=== PATIENT | female | born 1950 | race Caucasian/White ===

== ENCOUNTER 2021-03-07 19:45 | Emergency (ER) | payer MEDICARE ==
[2021-03-07 20:08] VITALS: PULSE 75; RESP 18; TEMP 98.1
[2021-03-07] MEDS ORDERED: HYDROmorphone 1 MG/ML 1 ML SYRINGE IM STA (20:10)
--- NOTE | 2021-03-07 20:13 | ED ---
General Adult HPI - General Chief complaint: Fall Stated complaint: Fall, rib pain Time Seen by Provider: 03/07/21 19:52 Source: patient, EMS, RN notes reviewed Mode of arrival: EMS Limitations: physical limitation - History of Present Illness Initial comments: Patient is a pleasant 70-year-old female presenting to the emergency Department with left-sided rib pain. Onset of symptoms was following a fall this morning. Patient denies dyspnea. Discomfort does increase with deep breaths and movement. Patient has history of chronic neck and lower back problems and requests x-ray these areas as well as. No head injury or loss of consciousness. No new weakness. Patient states she tripped and landed on the couch. - Related Data Allergies Allergy/AdvReac Type Severity Reaction Status Date / Time bupropion [From Wellbutrin] Allergy Rash/Hives Verified 03/07/21 20:09 Penicillins Allergy Anaphylaxis Verified 03/07/21 20:09 Review of Systems ROS Statement: Those systems with pertinent positive or pertinent negative responses have been documented in the HPI. ROS Other: All systems not noted in ROS Statement are negative. Constitutional: Denies: fever Eyes: Denies: eye pain ENT: Denies: ear pain Respiratory: Denies: cough, dyspnea Cardiovascular: Reports: as per HPI. Denies: palpitations Endocrine: Denies: fatigue Gastrointestinal: Denies: abdominal pain Genitourinary: Denies: dysuria Musculoskeletal: Reports: as per HPI Skin: Denies: rash Neurological: Denies: weakness Past Medical History Past Medical History: Myocardial Infarction ([place]) Additional Past Medical History / Comment(s): 1 stent placed in 2009, History of Any Multi-Drug Resistant Organisms: None Reported Past Surgical History: No Surgical Hx Reported Past Psychological History: Anxiety Smoking Status: Current every day smoker, Light tobacco smoker Past Alcohol Use History: None Reported Past Drug Use History: None Reported General Exam Limitations: physical limitation General appearance: alert, in no apparent distress Head exam: Present: normocephalic Eye exam: Present: normal appearance ENT exam: Present: normal oropharynx Neck exam: Present: normal inspection. Absent: tenderness Respiratory exam: Present: normal lung sounds bilaterally, other (Tenderness left lateral ribs below the axilla.) Cardiovascular Exam: Present: regular rate, normal rhythm GI/Abdominal exam: Present: soft. Absent: distended, tenderness, guarding, rebound, rigid Extremities exam: Present: normal inspection, full ROM. Absent: tenderness Back exam: Present: normal inspection. Absent: tenderness, CVA tenderness (L), vertebral tenderness Neurological exam: Present: alert. Absent: motor sensory deficit Expanded Motor strength exam: RLE: 5, LLE: 5 Psychiatric exam: Present: normal affect, normal mood Skin exam: Present: normal color Course Vital Signs 03/07/21 19:48 Temperature 98.1 F Pulse Rate 75 Respiratory 18 Rate Blood Pressure 146/76 O2 Sat by Pulse 98 Oximetry Medical Decision Making - Medical Decision Making Patient reevaluated and resting comfortably in home. Bed. Case discussed with Dr. Sanchez who is comfortable with either admission or discharge and patient pain. This was discussed with patient. Patient denies dyspnea and does request discharge home. Patient is nervous regarding recent viruses in the community. Patient is updated she will need to return if short of breath or worsening symptoms. Respiratory called for incentive spirometry for patient and take home - Radiology Data Radiology results: image reviewed (Chest x-ray shows displaced left lateral rib fractures 5 through 7 and probably 8. Cervical and lumbar spine x-rays show no acute process) Disposition Clinical Impression: Fall, Rib fractures Disposition: HOME SELF-CARE Condition: Stable Instructions (If sedation given, give patient instructions): Fall Prevention (ED), Rib Fracture (ED) Additional Instructions: Please follow-up with primary care physician in the next day or 2 for recheck. Return for any difficulty breathing, increased pain, fevers, worsening symptoms or other concerns. Is patient prescribed a controlled substance at d/c from ED?: No Referrals: Christopher Pleitez MD [Primary Care Provider] - 1-2 days Time of Disposition: 21:16
--- NOTE | 2021-03-07 21:00 | XR ---
EXAMINATION TYPE: XR ribs LT w pa chest xray DATE OF EXAM: 03/07/2021 COMPARISON: 11/16/2020 HISTORY: Trauma. Left-sided rib pain TECHNIQUE: 5 views FINDINGS: Heart size is normal. There is no heart failure. Lungs are clear of consolidation. There is deformity of multiple left lateral ribs. There are fractures of the left fifth and sixth and seventh and probably eighth ribs. There is pleural thickening on the left lateral chest wall. No pneumothora x. IMPRESSION: Multiple acute mildly displaced left-sided rib fractures with depression of the lateral r ibs. No cardiopulmonary disease. No pneumothorax.
--- NOTE | 2021-03-07 21:02 | XR ---
EXAMINATION TYPE: XR lumbar spine 2 or 3V DATE OF EXAM: 03/07/2021 COMPARISON: NONE HISTORY: Pain TECHNIQUE: 3 views FINDINGS: The lumbar vertebra have normal alignment. There is degenerative disc space narrowing at L4 -5 and L5-S1. There is some spurring of the endplates. Abdominal aorta is atheromatous. Sacroiliac checo ints are intact. IMPRESSION: Spondylotic changes. No fracture.
--- NOTE | 2021-03-07 21:09 | XR ---
EXAMINATION TYPE: XR cervical spine comp DATE OF EXAM: 03/07/2021 COMPARISON: NONE HISTORY: Pain TECHNIQUE: 6 views FINDINGS: The cervical vertebra have normal alignment. Posterior elements are intact. There is some o steopenia. Disc spaces are fairly normal. There is no cervical rib. Atlantoaxial facet joint is intac t. IMPRESSION: Negative cervical spine exam. No fracture.
[2021-03-07] MEDS ORDERED: ACET/COD 300 MG/30 MG STARTER PACK 6 TAB BTL PO STA (21:16)
[2021-03-07 22:50] VITALS: BP 145/70
== END 2021-03-07 22:09 | disposition home or self-care (01) ==
LOC: EC 19:45
DX: S22.32XA Fracture of one rib, left side, initial encounter for closed fracture (principal); I25.2 Old myocardial infarction; F41.9 Anxiety disorder, unspecified; F17.200 Nicotine dependence, unspecified, uncomplicated; Z88.0 Allergy status to penicillin; W01.0XXA Fall on same level from slipping, tripping and stumbling without subsequent striking against object, initial encounter
CPT/HCPCS: 99283; 96372; 71101; 72050; 72100; J1170

== ENCOUNTER → 2021-04-22 | Outpatient (CLI) | payer MEDICARE ==
--- NOTE | 2021-04-22 14:42 | US ---
EXAMINATION TYPE: US carotid duplex BILAT DATE OF EXAM: 04/22/2021 COMPARISON: NONE CLINICAL HISTORY: G45.9 TIA. TIA. Fall EXAM MEASUREMENTS: RIGHT: Peak Systolic Velocity (PSV) cm/sec ----- Right CCA: 53.1 ----- Right ICA: 194.3 ----- Right ECA: 215.1 ICA/CCA ratio: 3.7 RIGHT: End Diastole cm/sec ----- Right CCA: 18.9 ----- Right ICA: 42.6 ----- Right ECA: 31.6 LEFT: Peak Systolic Velocity (PSV) cm/sec ----- Left CCA: N/A ----- Left ICA: N/A ----- Left ECA: 56.3 ICA/CCA ratio: N/A LEFT: End Diastole cm/sec ----- Left CCA: N/A ----- Left ICA: N/A ----- Left ECA: 15.6 VERTEBRALS (direction of flow): Right Vertebral: antegrade, diminished Left Vertebral: Antegrade Rhythm: Normal Moderate plaque right bifurcation. Severe plaque left bifurcation. Increased velocities right ICA and ECA. Unable to detect flow within left CCA, left bulb, or left ICA. possible flow reversal left ICA IMPRESSION: 1. Moderate to severe right carotid bulb plaque formation with the moderate 50-69% stenosis. 2. Severe calcified plaque formation in the left carotid bulb with no detectable flow in the left com mon or internal carotid arteries possibly indicating complete obstruction. CTA of the neck might be u seful for further evaluation. Criteria for Assigning % of Stenosis / Diameter reduction (Estimation based on the indirect measurements of the internal carotid artery velocities (ICA PSV). 1. Normal (no stenosis)=ICA PSV < 125 cm/s: ratio < 2.0: ICA EDV<40 cm/s. 2. Less than 50% stenosis=ICA PSV < 125 cm/s: ratio < 2.0: ICA EDV<40 cm/s. 3. 50 to 69% stenosis=ICA PSV of 125 to 230 cm/s: ration 2.0 ? 4.0: ICA EDV 40-100 cm/s. 4. Greater than 70% stenosis to near occlusion= ICA PSV > 230 cm/s: ratio > 4.0: ICA EDV > 100 cm/s. 5. Near occlusion= ICA PSV velocities may be low or undetectable: variable ratio and ICA EDV. 6. Total occlusion=unable to detect flow.
--- NOTE | 2021-04-23 14:39 | ECHOF ---
Referral Reason:G45.9 TIA MEASUREMENTS -------- HEIGHT: 172.7 cm WEIGHT: 88.0 kg BP: IVSd: 1.5 cm (0.6 - 1.1) LVIDd: 3.7 cm (3.9 - 5.3) LVPWd: 1.3 cm (0.6 - 1.1) IVSs: 1.7 cm LVIDs: 1.9 cm LVPWs: 1.5 cm LAESV Index (A-L): 28.77 ml/m Ao Diam: 2.8 cm (2.0 - 3.7) AV Cusp: 2.0 cm (1.5 - 2.6) MV E Kj: 0.47 m/s MV DecT: 244 ms MV A Kj: 0.77 m/s MV E/A Ratio: 0.61 RAP: 5.00 mmHg RVSP: 11.31 mmHg FINDINGS -------- Sinus rhythm. This was a technically adequate study. The left ventricular size is normal. There is moderate concentric left ventricular hypertrophy. O verall left ventricular systolic function is normal with, an EF between 55 - 60 %. The diastolic fi lling pattern is normal for the age of the patient 7.75. The right ventricle is normal in size. The left atrial size is normal. The right atrial size is normal. Interatrial and interventricular septum intact. There is mild aortic valve sclerosis. There is no evidence of aortic regurgitation. There is no e vidence of aortic stenosis. Mild mitral annular calcification present. There is trace to mild mitral regurgitation. Trace tricuspid regurgitation present. There is no evidence of pulmonary hypertension. The right ventricular systolic pressure, as measured by Doppler, is 11.31mmHg. The pulmonic valve was not well visualized. There is no pulmonic regurgitation present. The aortic root size is normal. IVC Not well visulized. There is no pericardial effusion. CONCLUSIONS -------- 1. There is moderate concentric left ventricular hypertrophy. 2. Overall left ventricular systolic function is normal with, an EF between 55 - 60 %. 3. The left atrial size is normal. 4. There is mild aortic valve sclerosis. 5. There is trace to mild mitral regurgitation. 6. Trace tricuspid regurgitation present. 7. There is no pericardial effusion. FOOD ORDER DELIVERY RUNNER: Shannan Cardona [facility]
== END | disposition home or self-care (01) ==
LOC: RADUSWWP 14:02
PROVIDERS: ATTEND Family Medicine
DX: I08.3 Combined rheumatic disorders of mitral, aortic and tricuspid valves (principal); I65.23 Occlusion and stenosis of bilateral carotid arteries
CPT/HCPCS: 93306; 93880

== ENCOUNTER 2021-05-17 16:19 | Inpatient (IN) | payer MEDICARE ==
[2021-05-17 17:10] VITALS: TEMP 98.2
[2021-05-17 17:42] LABS: Basophils # (A) 0.1 k/uL (0-0.2); Basophils % (A) 1 %; Eosinophils # (A) 0.3 k/uL (0-0.7); Eosinophils % (A) 3 %; HCT 40.3 % (34.0-46.0); HGB 14.1 gm/dL (11.4-16.0); Lymphocytes # (A) 1.4 k/uL (1.0-4.8); Lymphocytes % (A) 14 %; Mean Platelet Volume 7.8; Monocytes # (A) 0.5 k/uL (0-1.0); Monocytes % (A) 5 %; Neutrophils # (A) 7.9 k/uL (1.3-7.7); Neutrophils % (A) 77 %; Platelet Count 204 k/uL (150-450); RBC 4.03 m/uL (3.80-5.40); WBC 10.2 k/uL (3.8-10.6)
[2021-05-17 17:50] LABS: Prothrombin Time 10.7 sec (9.0-12.0)
[2021-05-17 17:56] LABS: Albumin 3.8 g/dL (3.5-5.0); Calcium 8.9 mg/dL (8.4-10.2); Potassium 3.7 mmol/L (3.5-5.1); Total Bilirubin 0.7 mg/dL (0.2-1.3); Total Protein 6.7 g/dL (6.3-8.2)
--- NOTE | 2021-05-17 19:42 | ED ---
Dizziness HPI - General Chief Complaint: Dizziness Stated Complaint: Fall-R shoulder pain,Dizziness Time Seen by Provider: 05/17/21 19:24 Source: patient, RN notes reviewed Mode of arrival: wheelchair Limitations: no limitations - History of Present Illness Initial Comments: 70-year-old female to the emergency department for complaints of dizziness and fall with some injury to her shoulders associated and actually impact with anything. She has similar episode in February this past year which she fell and broke 4 ribs. She states she's been having intermittent episodes of dizziness she states yesterday she had numbness and tingling to her left arm which is since resolved. She's been nauseated a lot with some vomiting. She also has had a slight cough or past 3 months. 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 She is currently under outpatient workup. She denies any overt fevers chills or sweats currently no overt dizziness no weakness addition she states she had some partial blindness of left eye ye sterday which has since resolved. MD Complaint: dizziness, lightheadedness, other - Related Data Allergies Allergy/AdvReac Type Severity Reaction Status Date / Time bupropion [From Wellbutrin] Allergy Rash/Hives Verified 05/17/21 17:10 Penicillins Allergy Anaphylaxis Verified 05/17/21 17:10 Review of Systems ROS Statement: Those systems with pertinent positive or pertinent negative responses have been documented in the HPI. ROS Other: All systems not noted in ROS Statement are negative. Past Medical History Past Medical History: COPD, Hypertension, Myocardial Infarction ([place]) Additional Past Medical History / Comment(s): 1 stent placed in 2009, emphysema. History of Any Multi-Drug Resistant Organisms: None Reported Past Surgical History: Heart Catheterization With Stent Past Psychological History: Anxiety Smoking Status: Current every day smoker Past Alcohol Use History: None Reported Past Drug Use History: None Reported General Exam - General Exam Comments Initial Comments: This is a well-developed well-nourished awake alert oriented 3 female Limitations: no limitations General appearance: alert, in no apparent distress Head exam: Present: atraumatic, normocephalic, normal inspection Eye exam: Present: normal appearance, PERRL, EOMI. Absent: scleral icterus, conjunctival injection, periorbital swelling ENT exam: Present: mucous membranes dry Neck exam: Present: normal inspection, full ROM, other (No JVD no stridor no overt bruits). Absent: tenderness, meningismus, lymphadenopathy Respiratory exam: Present: normal lung sounds bilaterally. Absent: respiratory distress, wheezes, rales, rhonchi, stridor Cardiovascular Exam: Present: regular rate, normal rhythm, normal heart sounds. Absent: systolic murmur, diastolic murmur, rubs, gallop, clicks GI/Abdominal exam: Present: soft, normal bowel sounds. Absent: distended, tenderness, guarding, rebound, rigid, bruit, pulsatile mass Extremities exam: Present: normal inspection, full ROM, normal capillary refill. Absent: tenderness, pedal edema, joint swelling, calf tenderness Back exam: Present: normal inspection Neurological exam: Present: alert, oriented X3, CN II-XII intact Psychiatric exam: Present: normal affect, normal mood Skin exam: Present: warm, dry, intact, normal color. Absent: rash Course Vital Signs 05/17/21 17:04 Temperature 98.2 F Pulse Rate 123 H Respiratory 20 Rate Blood Pressure 86/62 O2 Sat by Pulse 94 L Oximetry EKG Findings - EKG Results: EKG: interpreted by LYNDA, sinus rhythm (Sinus rhythm 118 PA interval 179 QRS duration 89 QT since QTC 3:30/[address] configuration artifact present) Medical Decision Making - Medical Decision Making I did have one discussed with patient and her friend regarding the findings the patient is currently asymptomatic with no evidence of any symptoms no focal defi cits. The presentation hour does sound suspicious for TIA. Patient will be admitted CT will be ordered neurological consultation. I did discuss this with Dr. Pleitez. - Lab Data Result diagrams: 05/17/21 17:15 05/17/21 17:15 Lab Results 05/17/21 05/17/21 05/17/21 Range/Units 17:15 17:15 17:15 WBC 10.2 (3.8-10.6) k/uL RBC 4.03 (3.80-5.40) m/uL Hgb 14.1 (11.4-16.0) gm/dL Hct 40.3 (34.0-46.0) % MCV 100.0 (80.0-100.0) fL MCH 35.0 (25.0-35.0) pg MCHC 35.0 (31.0-37.0) g/dL RDW 14.0 (11.5-15.5) % Plt Count 204 (150-450) k/uL MPV 7.8 Neutrophils % 77 % Lymphocytes % 14 % Monocytes % 5 % Eosinophils % 3 % Basophils % 1 % Neutrophils # 7.9 H (1.3-7.7) k/uL Lymphocytes # 1.4 (1.0-4.8) k/uL Monocytes # 0.5 (0-1.0) k/uL Eosinophils # 0.3 (0-0.7) k/uL Basophils # 0.1 (0-0.2) k/uL PT 10.7 (9.0-12.0) sec INR 1.0 (<1.2) Sodium 131 L (137-145) mmol/L Potassium 3.7 (3.5-5.1) mmol/L Chloride 99 (98-107) mmol/L Carbon Dioxide 22 (22-30) mmol/L Anion Gap 10 mmol/L BUN 17 (7-17) mg/dL Creatinine 1.06 H (0.52-1.04) mg/dL Est GFR (CKD-EPI)AfAm 63 (>60 ml/min/1.73 sqM) Est GFR (CKD-EPI)NonAf 54 (>60 ml/min/1.73 sqM) Glucose 119 H (74-99) mg/dL Calcium 8.9 (8.4-10.2) mg/dL Total Bilirubin 0.7 (0.2-1.3) mg/dL AST 71 H (14-36) U/L ALT 51 H (4-34) U/L Alkaline Phosphatase 115 (38-126) U/L Troponin I (0.000-0.034) ng/mL Total Protein 6.7 (6.3-8.2) g/dL Albumin 3.8 (3.5-5.0) g/dL 05/17/21 Range/Units 17:15 WBC (3.8-10.6) k/uL RBC (3.80-5.40) m/uL Hgb (11.4-16.0) gm/dL Hct (34.0-46.0) % MCV (80.0-100.0) fL MCH (25.0-35.0) pg MCHC (31.0-37.0) g/dL RDW (11.5-15.5) % Plt Count (150-450) k/uL MPV Neutrophils % % Lymphocytes % % Monocytes % % Eosinophils % % Basophils % % Neutrophils # (1.3-7.7) k/uL Lymphocytes # (1.0-4.8) k/uL Monocytes # (0-1.0) k/uL Eosinophils # (0-0.7) k/uL Basophils # (0-0.2) k/uL PT (9.0-12.0) sec INR (<1.2) Sodium (137-145) mmol/L Potassium (3.5-5.1) mmol/L Chloride (98-107) mmol/L Carbon Dioxide (22-30) mmol/L Anion Gap mmol/L BUN (7-17) mg/dL Creatinine (0.52-1.04) mg/dL Est GFR (CKD-EPI)AfAm (>60 ml/min/1.73 sqM) Est GFR (CKD-EPI)NonAf (>60 ml/min/1.73 sqM) Glucose (74-99) mg/dL Calcium (8.4-10.2) mg/dL Total Bilirubin (0.2-1.3) mg/dL AST (14-36) U/L ALT (4-34) U/L Alkaline Phosphatase (38-126) U/L Troponin I 0.013 (0.000-0.034) ng/mL Total Protein (6.3-8.2) g/dL Albumin (3.5-5.0) g/dL Disposition Clinical Impression: TIA (transient ischemic attack), Dizziness Disposition: ADMITTED IP TO THIS HOSP Condition: Stable Referrals: Christopher Pleitez MD [Primary Care Provider] - 1-2 days
[2021-05-17] MEDS ORDERED: ASPIRIN 325 MG TAB PO STA (20:11)
[2021-05-17] MEDS ORDERED: ACETAMINOPHEN TAB 325 MG TAB PO PRN (20:11)
[2021-05-17] MEDS ORDERED: SODIUM CHLORIDE 0.9% 1,000 ML IV SCH (20:15)
[2021-05-17] MEDS ORDERED: HYDROcodone/APAP 5-325MG 1 EACH TAB PO PRN (20:40)
[2021-05-17] MEDS ORDERED: ALBUTEROL NEBULIZED 2.5 MG/3 ML INHALATION PRN (20:40)
[2021-05-17] MEDS ORDERED: traMADol 50 MG TAB PO PRN (20:40)
[2021-05-17 20:52] LABS: Appearance,Urine Cloudy (Clear); Bilirubin,Urine Negative (Negative); Blood,Urine Negative (Negative); Color,Urine Yellow; Glucose,Urine (UA) Negative (Negative); Hyaline Casts,Urine 29 /lpf (0-2); Ketones,Urine Negative (Negative); Leukocyte Esterase,Urine Large (Negative); Mucus,Urine Occasional /hpf; Nitrite,Urine Negative (Negative); Protein,Urine Trace (Negative); RBC,Urine 2 /hpf (0-5); Specific Gravity,Urine 1.016 (1.001-1.035); Squamous Epithelial Cell,Urine 5 /hpf (0-4); Urobilinogen,Urine <2.0 mg/dL (<2.0); WBC,Urine 29 /hpf (0-5)
[2021-05-17] MEDS ORDERED: PRAVASTATIN SODIUM 40 MG TAB PO SCH (21:00)
[2021-05-17] MEDS ORDERED: CITALOPRAM HYDROBROMIDE 20 MG TAB PO SCH (21:00)
--- NOTE | 2021-05-17 21:09 | XR ---
EXAMINATION TYPE: XR chest 1V DATE OF EXAM: 05/17/2021 COMPARISON: 03/07/2021 HISTORY: Altered mental status TECHNIQUE: Single view FINDINGS: There is some blunting left costophrenic angle. There is minimal pleural thickening left la teral chest wall. There are multiple left lateral rib fractures. No heart failure seen. Heart size is normal. IMPRESSION: Multiple left-sided ununited rib fractures. Mild pleural reaction at the left lateral nika g base. No heart failure.
--- NOTE | 2021-05-17 21:33 | CT ---
EXAMINATION TYPE: CT brain wo con for TPA DATE OF EXAM: 05/17/2021 COMPARISON: None HISTORY: Neuro deficits, vision disturbances, dizziness. Stroke suspcted CT DLP: 1176.8 mGycm Automated exposure control for dose reduction was used. Images obtained of the brain without contrast. There is mild cerebral cortical atrophy. There is no mass effect or midline shift. There is no sign o f intracranial hemorrhage. There is rounded high attenuation mass measuring 1.6 cm at the right side of the [place] there is densely enhancing on the angiogram and consistent with a giant aneur ysm probably arising from the right posterior communicating artery. There is no evidence of focal cortical infarct. There is some mass effect upon the optic chiasm. 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 Mild cerebral atrophy.
--- NOTE | 2021-05-17 21:59 | CT ---
EXAMINATION TYPE: CT angio head neck DATE OF EXAM: 05/17/2021 COMPARISON: None HISTORY: Neuro deficits, vision disturbances, dizziness. Stroke suspcted CT DLP: 647.6 mGycm Automated exposure control for dose reduction was used. CONTRAST: Performed with IV Contrast, patient injected with 65 mL of Isovue 370. Images obtained from the aortic arch to the vertex of the brain with IV contrast. There are Three-D p ostprocessed images. There is normal branching pattern of the great vessels on the aortic arch. There is arterial flow in both subclavian arteries. There is apparent complete occlusion of the left common carotid artery. The re is extensive calcification at the left carotid artery bifurcation. There is arterial flow in the r ight common carotid artery and the right internal and external carotid artery without evidence of hem odynamic stenosis. There is arterial flow in both vertebral arteries. There is arterial flow in the distal right internal carotid artery at the [place]. There is a uniformly enhancing 1.7 cm rounded mass at the right side of the [place] consistent with a giant aneurysm. Enhancement is equal to the adjacent vessels. There is arterial flow in both middle cerebral arteries. Left middle cerebral artery appears to be filling through the anterior communicati ng artery. No flow seen in the left internal carotid artery at the [place]. There is arteria l flow in both posterior cerebral arteries and both anterior cerebral arteries. No evidence of hemody namic stenosis. The large aneurysm shows mass effect upon the optic chiasm and the right side of the sella turc[place]. There is normal enhancement of the venous sinuses. No contrast extravasation. There is normal contras t opacification of the vertebrobasilar artery system. IMPRESSION: There is a joint aneurysm of the right side of the [place] that is probably arising from the right posterior communicating artery. There is mass effect upon the optic chiasm and pituitary gland . There is thrombosis of the entire left carotid artery. There is filling of the left middle cerebral artery through the anterior communicating artery. It is filling of the left anterior cerebral artery through the anterior communicating artery.
[2021-05-17] MEDS: CYCLOBENZAPRINE 10 MG TAB PO SCH (22:34)
[2021-05-17] MEDS: METOPROLOL TARTRATE 50 MG TAB PO SCH (22:35)
[2021-05-17] MEDS: ALPRAZolam 0.5 MG TAB PO SCH (22:36)
[2021-05-17] MEDS: FAMOTIDINE 20 MG/2 ML VIAL IV SCH (22:36)
[2021-05-18] MEDS ORDERED: SYMBICORT 160-4.5 MCG INHALER INHALATION SCH (08:00)
--- NOTE | 2021-05-18 08:19 | P.HPIM ---
History of Present Illness H&P Date: 05/18/21 Chief Complaint: Dizziness This is a history of physical 70-year-old white female with known history of hypertension and hyperlipidemia who states yesterday she had significant problems related to dizziness. She then had left-sided visual loss and left- sided numbness and weakness which lasted about an hour. She did not complain of any gait dysfunction but she complained of dizziness and balance issues. This resolved but she was very worried about vascular issues and came in for workup. Computed tomography scan of the head did not show significant issue. However gi nadia her symptomatology and her underlying comorbidities, she is appropriately evaluated for TIA/CVA workup. Neurology is not consulted. She seems a symptomatically at this time and has rested well this morning. No taste issues. Numbness and tingling are stated in the extremities. Review of Systems Constitutional: Denies chills, Denies fever Ears, nose, mouth and throat: Denies headache, Denies sore throat Cardiovascular: Denies chest pain, Denies shortness of breath Respiratory: Denies cough Gastrointestinal: Denies abdominal pain, Denies diarrhea, Denies nausea, Denies vomiting Genitourinary: Denies dysuria, Denies hematuria Neurological: Reports loss of vision, Reports vertigo, Denies aphasia Past Medical History Past Medical History: COPD, Hypertension, Myocardial Infarction (MA) Additional Past Medical History / Comment(s): 1 stent placed in 2009, emphysema. History of Any Multi-Drug Resistant Organisms: None Reported Past Surgical History: Heart Catheterization With Stent Past Psychological History: Anxiety Smoking Status: Current every day smoker Past Alcohol Use History: None Reported Past Drug Use History: None Reported Medications and Allergies Home Medications Medication Instructions Recorded Confirmed Type ALPRAZolam [Xanax] 0.5 mg PO TID 05/17/21 05/17/21 History Albuterol Sulfate [Albuterol 2 puff INHALATION RT-Q6H PRN 05/17/21 05/17/21 History Sulfate Hfa] Aspirin [[place] Aspirin EC] 81 mg PO HS 05/17/21 05/17/21 History Cholecalciferol [Vitamin D3 (125 125 mcg PO DAILY 05/17/21 05/17/21 History Mcg = 5000 Iu)] Citalopram Hydrobromide [CeleXA] 40 mg PO HS 05/17/21 05/17/21 History Clopidogrel [Plavix] 75 mg PO DAILY 05/17/21 05/17/21 History Cyclobenzaprine [Flexeril] 10 mg PO BID 05/17/21 05/17/21 History Fluticasone/Vilanterol [Breo 1 puff INHALATION RT-DAILY 05/17/21 05/17/21 History Ellipta 200-25 Mcg Inhaler] HYDROcodone/APAP 5-325MG [[place] 1 tab PO Q6HR PRN 05/17/21 05/17/21 History 5-325] Ipratropium-Albuterol Nebulize 3 ml INHALATION RT-HS 05/17/21 05/17/21 History [Duoneb 0.5 mg-3 mg/3 ml Soln] Isosorbide Mononitrate ER [Imdur] 30 mg PO DAILY 05/17/21 05/17/21 History Magnesium Oxide [Mag-Ox] 400 mg PO DAILY 05/17/21 05/17/21 History Metoprolol Tartrate [Lopressor] 50 mg PO BID 05/17/21 05/17/21 History Pravastatin Sodium [Pravachol] 40 mg PO HS 05/17/21 05/17/21 History amLODIPine [Norvasc] 2.5 mg PO DAILY 05/17/21 05/17/21 History lisinopriL [Zestril] 20 mg PO DAILY 05/17/21 05/17/21 History traMADol HCL 100 mg PO Q6H PRN 05/17/21 05/17/21 History Allergies Allergy/AdvReac Type Severity Reaction Status Date / Time bupropion [From Wellbutrin] Allergy Rash/Hives Verified 05/17/21 20:33 Penicillins Allergy Anaphylaxis Verified 05/17/21 20:33 Physical Exam Vitals: Vital Signs Temp Pulse Resp BP Pulse Ox 05/18/21 06:44 73 18 124/84 94 L 05/18/21 02:30 73 16 135/84 92 L 05/18/21 01:00 75 18 132/83 92 L 05/17/21 23:00 74 18 120/85 93 L 05/17/21 22:39 111 H 18 126/88 94 L 05/17/21 21:00 110 H 18 126/80 94 L 05/17/21 17:04 98.2 F 123 H 20 86/62 94 L Intake and Output 05/17/21 05/18/21 05/18/21 22:59 06:59 14:59 Other: Weight 87.997 kg - Constitutional General appearance: cooperative, no acute distress - EENT Eyes: EOMI - Neck Neck: no lymphadenopathy - Respiratory Respiratory: bilateral: CTA - Cardiovascular Rhythm: regular Heart sounds: normal: S1, S2 Abnormal Heart Sounds: no S3 Gallop - Gastrointestinal General gastrointestinal: soft, no tenderness - Integumentary Integumentary: no jaundiced - Neurologic Neurologic: CNII-XII intact Results CBC & Chem 7: 05/17/21 17:15 05/17/21 17:15 Labs: Abnormal Lab Results - Last 24 Hours (Table) 05/17/21 05/17/21 05/17/21 Range/Units 17:15 17:15 20:25 Neutrophils # 7.9 H (1.3-7.7) k/uL Sodium 131 L (137-145) mmol/L Creatinine 1.06 H (0.52-1.04) mg/dL Glucose 119 H (74-99) mg/dL AST 71 H (14-36) U/L ALT 51 H (4-34) U/L Urine Appearance Cloudy H (Clear) Urine Protein Trace H (Negative) Ur Leukocyte Esterase Large H (Negative) Urine WBC 29 H (0-5) /hpf Ur Squamous Epith Cells 5 H (0-4) /hpf Hyaline Casts 29 H (0-2) /lpf Urine Mucus Occasional H (None) /hpf Microbiology - Last 24 Hours (Table) 05/17/21 20:25 Urine Culture - Preliminary Urine,Voided Assessment and Plan (1) CAD (coronary artery disease) Current Visit: Yes Status: Acute Code(s): I25.10 - ATHSCL HEART DISEASE OF [place] CORONARY ARTERY W/O ANG PCTRS SNOMED Code(s): 15200232 (2) Hypertension Current Visit: Yes Status: Chronic Code(s): I10 - ESSENTIAL (PRIMARY) HYPERTENSION SNOMED Code(s): 89450911 (3) Hyperlipidemia Current Visit: No Status: Chronic Code(s): E78.5 - HYPERLIPIDEMIA, UNSPECIFIED SNOMED Code(s): 31860992 (4) Dizziness Current Visit: Yes Status: Acute Code(s): R42 - DIZZINESS AND GIDDINESS SNOMED Code(s): 138897586 (5) TIA (transient ischemic attack) Current Visit: Yes Status: Acute Code(s): G45.9 - TRANSIENT CEREBRAL ISCHEMIC ATTACK, UNSPECIFIED SNOMED Code(s): 653735186 Plan: MRI with duplex carotid ultrasound are pending. Reconcile medications. Appreciate neurology input. Await testing. Prognosis excellent.
[2021-05-18] MEDS ORDERED: CLOPIDOGREL 75 MG TAB PO SCH ×2 (09:00)
[2021-05-18] MEDS ORDERED: ASPIRIN 81 MG PO SCH (09:00)
[2021-05-18] MEDS ORDERED: lisinopriL 20 MG TAB PO SCH (09:00)
[2021-05-18] MEDS ORDERED: ISOSORBIDE MONONITRATE ER 30 MG TAB.ER.24H PO SCH (09:00)
[2021-05-18] MEDS ORDERED: amLODIPine 2.5 MG TAB PO SCH (09:00)
[2021-05-18] MEDS ORDERED: CHOLECALCIFEROL 125 MCG (5000 IU) TABLET PO SCH (09:00)
[2021-05-18] MEDS ORDERED: MAGNESIUM OXIDE 400 MG TAB PO SCH (09:00)
[2021-05-18 09:55] LABS: Chol/HDL Ratio 2.91 Ratio
[2021-05-18] MEDS ORDERED: ASPIRIN 325 MG TAB PO SCH (10:00)
[2021-05-18] MEDS ORDERED: PRAVASTATIN SODIUM 80 MG TAB PO SCH (10:00)
[2021-05-18] MEDS: CYCLOBENZAPRINE 10 MG TAB PO SCH (10:05)
[2021-05-18] MEDS: METOPROLOL TARTRATE 50 MG TAB PO SCH (10:05)
[2021-05-18] MEDS: FAMOTIDINE 20 MG/2 ML VIAL IV SCH (10:07)
--- NOTE | 2021-05-18 10:19 | P.CNNES ---
History of Present Illness Consult date: 05/18/21 Requesting physician: Austen Shipley Reason for Consult: TIA History of Present Illness: This is a 70-year-old woman with medical history of left carotid obstruction and moderate stenosis over the right ICA, hypertension, coronary artery disease status post stent, tobacco use who presented to the emergency department on 0 05/17/2021 because of dizziness and a fall. Patient the fell and she's having shoulder pain. Patient stated that the she's been feeling dizzy and had a fall yesterday. Yesterday she knows that she is having numbness over the left arm and has some nausea and vomiting. Her symptoms has resolved currently. She said that the she feels her dizziness happens when she is moving around. She's been having intermittent dizziness since February 2021 and the patient had a fall in February 2021 as an as a result broke 4 ribs. She denies of any diplopia, difficulty swallowing, difficulty getting her words out, any focal weakness. Upon falling she denies any loss of consciousness, urinary or bowel i ncontinence. She denies any history of stroke, TIA or seizure. She denies of any headache. She resides by herself. Patient smokes about half a pack a day for 50 years but stopped 4 days ago. She denies any illicit drug use. Patient is on home medication of aspirin 325mg, Plavix 75 mg, pravastatin 40 mg daily at bedtime, Flexeril 10 mg 1 tablet twice a day, amlodipine, tramadol, metoprolol, Imdur, Celexa. Some other workup in the hospital consisted of: Initial vital signs is a blood pressure of 86/62, heart rate of 123, temperature of 98.2 Fahrenheit oral, respiratory of 20, pulse ox of 94 at room air. Otherwise the patient's systolic blood pressure has been in the range of 120s to 130s and diastolic in the 80s. CBC with differential is unremarkable Chemistry panel is creatinine is 1.06, AST of 71, ALT of 51 otherwise the rest of chemistry panel is unremarkable PT and INR is unremarkable Urinalysis is the leukocyte esterase was large, urine white blood cells 29 seen suspicious for ureter tract infection. 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 Mild cerebral atrophy. Antibody reported as reported as the aneurysm size is 1.6 cm. I personally reviewed the CT of the head and I do not appreciate any acute subacute ischemia and there is no at parenchymal hemorrhage. I do appreciate the large aneurysm in the right [place] mentioned and the per report. CT angiography of the head and neck is reported as there is a joint aneurysm of the right side of the [place] that is probably arising from the right posterior communicating artery. There is a mass effect up upon the optic chiasm and pituitary gland. There is thrombosis of the entire left carotid artery. Th ere is a filling of the left middle cerebral artery through the anterior communicating artery. It is filling of the left anterior cerebral artery through the anterior communicating artery. She had carotid duplex on 05/12/2021 and it reported as complete moderate to severe right carotid bulb plaque formation with moderate 50-69% stenosis. Severe calcified plaque formation in the left carotid polyp with no detectable flow in the left common or internal carotid artery possibly indicating complete obstruction. The carotid duplex was ordered by her primary attending because of a fall. Review of Systems Review of system: The 12 point system was reviewed and apparent positive and negative per HPI. Past Medical History Past Medical History: COPD, Hypertension, Myocardial Infarction (MA) Additional Past Medical History / Comment(s): 1 stent placed in 2009, emphysema. History of Any Multi-Drug Resistant Organisms: None Reported Past Surgical History: Heart Catheterization With Stent Past Psychological History: Anxiety Smoking Status: Current every day smoker Past Alcohol Use History: None Reported Past Drug Use History: None Reported Medications and Allergies Home Medications Medication Instructions Recorded Confirmed Type ALPRAZolam [Xanax] 0.5 mg PO TID 05/17/21 05/17/21 History Albuterol Sulfate [Albuterol 2 puff INHALATION RT-Q6H PRN 05/17/21 05/17/21 History Sulfate Hfa] Aspirin [[place] Aspirin EC] 81 mg PO HS 05/17/21 05/17/21 History Cholecalciferol [Vitamin D3 (125 125 mcg PO DAILY 05/17/21 05/17/21 History Mcg = 5000 Iu)] Citalopram Hydrobromide [CeleXA] 40 mg PO HS 05/17/21 05/17/21 History Clopidogrel [Plavix] 75 mg PO DAILY 05/17/21 05/17/21 History Cyclobenzaprine [Flexeril] 10 mg PO BID 05/17/21 05/17/21 History Fluticasone/Vilanterol [Breo 1 puff INHALATION RT-DAILY 05/17/21 05/17/21 History Ellipta 200-25 Mcg Inhaler] HYDROcodone/APAP 5-325MG [[place] 1 tab PO Q6HR PRN 05/17/21 05/17/21 History 5-325] Ipratropium-Albuterol Nebulize 3 ml INHALATION RT-HS 05/17/21 05/17/21 History [Duoneb 0.5 mg-3 mg/3 ml Soln] Isosorbide Mononitrate ER [Imdur] 30 mg PO DAILY 05/17/21 05/17/21 History Magnesium Oxide [Mag-Ox] 400 mg PO DAILY 05/17/21 05/17/21 History Metoprolol Tartrate [Lopressor] 50 mg PO BID 05/17/21 05/17/21 History Pravastatin Sodium [Pravachol] 40 mg PO HS 05/17/21 05/17/21 History amLODIPine [Norvasc] 2.5 mg PO DAILY 05/17/21 05/17/21 History lisinopriL [Zestril] 20 mg PO DAILY 05/17/21 05/17/21 History traMADol HCL 100 mg PO Q6H PRN 05/17/21 05/17/21 History Allergies Allergy/AdvReac Type Severity Reaction Status Date / Time bupropion [From Wellbutrin] Allergy Rash/Hives Verified 05/17/21 20:33 Penicillins Allergy Anaphylaxis Verified 05/17/21 20:33 Physical Examination - Vital Signs Vital Signs: Vital Signs Temp Pulse Resp BP Pulse Ox 05/18/21 06:44 73 18 124/84 94 L 05/18/21 02:30 73 16 135/84 92 L 05/18/21 01:00 75 18 132/83 92 L 05/17/21 23:00 74 18 120/85 93 L 05/17/21 22:39 111 H 18 126/88 94 L 05/17/21 21:00 110 H 18 126/80 94 L 05/17/21 17:04 98.2 F 123 H 20 86/62 94 L Intake and Output 05/17/21 05/18/21 05/18/21 22:59 06:59 14:59 Other: Weight 87.997 kg GENERAL: The patient is lying in bed and is not in acute distress. CHEST: The heart rate is regular rate rhythm. No murmurs to auscultation. LUNG: Clear to auscultation bilaterally no wheezing noted throughout. Not labored breathing. ABDOMEN/GI: Bowel sounds present in all 4 quadrants. No tenderness to palpation throughout. NEUROLOGICAL: Higher mental function: The patient is awake, alert, oriented to self, place and time. Patient is following commands. No aphasia and no neglect. Cranial nerves: The pupils are round, equal and reactive to light and accommodation. Visual niño are full to confrontation throughout. Extraocular movement is intact no nystagmus is noted. Facial sensation is normal to touch throughout. The facial strength is right nasolabial flattening. . Hearing is normal bilaterally to hand rub. Tongue is midline and moved [id number] without any difficulty. No dysarthria is noted. Shoulder shrug is normal bila terally. Motor: The strength is 5 over 5 throughout. Normal tone and bulk. Cerebellum: Normal finger to nose heel to pandey bilaterally. Sensation: Sensation is normal to touch throughout. Reflexes (right/left): 2+. Plantars are downgoing bilaterally. Results - Laboratory Findings CBC and BMP: 05/17/21 17:15 05/17/21 17:15 Abnormal Lab Findings: Abnormal Labs 05/17/21 05/17/21 05/17/21 17:15 17:15 20:25 Neutrophils # 7.9 H Sodium 131 L Creatinine 1.06 H Glucose 119 H AST 71 H ALT 51 H Urine Appearance Cloudy H Urine Protein Trace H Ur Leukocyte Esterase Large H Urine WBC 29 H Ur Squamous Epith Cells 5 H Hyaline Casts 29 H Urine Mucus Occasional H Assessment and Plan Assessment: Transient Dizziness, nausea, vomitting and left sided paresthesia due to Large right aneurysm (appears CONSOLIDATION ACCOUNTANT) about 1.6 cm with mass effect over optic chaism and pituitary gland Left carotid occlusion Moderate carotid stenosis of 50-60% per carotid ultrasound on 04/22/2021 Possible suspicious of acute urinary tract infection History of coronary artery disease status post that Hypertension and on presentation had one episode of hypotensive. Tobacco use 1/2 PPD for 50 years Plan: I spoke with Dr. Murray (Neuro-interventionalist) regarding the case and he accepted the patient to be transferred for escalation of care. In the mean time, I ordered MRI of the brain and MRA of the head. Patient was given aspirin 325mg once. I started the patient on home medication of aspirin 325 mg and Plavix 75 mg daily. I started the patient on Lipitor 80 mg daily at bedtime for secondary stroke prophylaxis but patient refused and would like to stay on her home medication of pravastatin 40 mg daily. Recommend a blood pressure to be an in the range of 120-140 systolic and avoid any hypotensive episode. We'll defer the management to the primary team Continue neuro checks On cardiac monitoring PT, OT and SCRUB TECH is consulted Patient was encouraged to the to continue to avoid tobacco cessation and she said that she stopped about 4 days ago. We'll defer the rest of the medical management to the primary team Plan was discussed and detailed with the patient, nurse and Dr. Murray. Thank you for the consultation Daniel Tijerina M.D. Neuro-hospitalist Time with Patient: Greater than 30
--- NOTE | 2021-05-18 12:17 | MR ---
MR brain without contrast HISTORY: Left-sided numbness and dizziness Multiplanar multisequence imaging through the brain, correlation to CT brain and CT angiogram of the head 05/17/2021, MR angiogram 05/18/2021. [id number] imaging obtained through the [place], t hree-dimensional postprocessing reconstructions performed on an alternate workstation and reviewed. There is no restricted diffusion to suggest subacute ischemia. There is no hemorrhage or hydrocephalu s. The corpus callosum, pituitary, cervical medullary junction, cerebellopontine angles are normal. B rain signal is maintained. Orbits show symmetric appearance. Mild mucosal disease present within the ethmoid air cells. The left internal carotid artery is occluded, cross-filling is present into the anterior cerebral art [place] and middle cerebral artery on the left. There is a large saccular aneurysm present of the internal carotid artery on the right likely at the supraclinoid location. Aneurysm measures approximately 17 mm in AP dimension by 15 mm in cephalad to caudal dimension by 17 mm in transverse dimension. The anterior and posterior circulation are intact, patent, left vertebral artery is dominant. There is some reduced signal noted along the anterior circulation which is felt likely due to flow re lated phenomenon on the [place] MRA. 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 Left common carotid artery is occluded at its origin.
[2021-05-18] MEDS: ALPRAZolam 0.5 MG TAB PO SCH (14:12)
[2021-05-18 14:26] VITALS: BP 125/86; PULSE 75; RESP 16
[2021-05-18] MEDS ORDERED: IPRATROPIUM-ALBUTEROL 3 ML NEB INHALATION SCH (20:00)
[2021-05-18] MEDS ORDERED: ATORVASTATIN 80 MG TAB PO SCH (21:00)
== END 2021-05-18 15:04 | disposition short-term general hospital (02) | DRG 93 ==
LOC: EC 16:19 → 1SOBS 20:29 → 6NMEDSUR 05-18 03:36 → OBSVTOIN 05-18 11:05 → 6NMEDSUR 05-18 11:51
PROVIDERS: ADMIT Family Medicine; ATTEND Family Medicine
DX: I67.1 Cerebral aneurysm, nonruptured (principal); I95.9 Hypotension, unspecified; E78.5 Hyperlipidemia, unspecified; J43.9 Emphysema, unspecified; G31.9 Degenerative disease of nervous system, unspecified; I65.23 Occlusion and stenosis of bilateral carotid arteries; I25.10 Atherosclerotic heart disease of native coronary artery without angina pectoris; I10 Essential (primary) hypertension; F41.9 Anxiety disorder, unspecified; H54.62 Unqualified visual loss, left eye, normal vision right eye; I25.2 Old myocardial infarction; M25.511 Pain in right shoulder; R53.1 Weakness; R82.90 Unspecified abnormal findings in urine; F17.210 Nicotine dependence, cigarettes, uncomplicated; Z71.6 Tobacco abuse counseling; Z79.82 Long term (current) use of aspirin; Z79.02 Long term (current) use of antithrombotics/antiplatelets; Z79.51 Long term (current) use of inhaled steroids; Z79.899 Other long term (current) drug therapy; Z87.81 Personal history of (healed) traumatic fracture; Z91.81 History of falling; W19.XXXA Unspecified fall, initial encounter; Z95.5 Presence of coronary angioplasty implant and graft; Z88.0 Allergy status to penicillin; Z88.8 Allergy status to other drugs, medicaments and biological substances
CPT/HCPCS: 36415; 70450; 70496; 70498; 70544; 70551; 71045; 80053; 80061; 81001; 84484; 85025; 85610; 87086; 93005; 94640; 96374; 99285

== ENCOUNTER → 2021-07-19 | Outpatient (CLI) | payer MEDICARE ==
--- NOTE | 2021-07-19 15:10 | US ---
EXAMINATION TYPE: US carotid duplex BILAT DATE OF EXAM: 07/19/2021 COMPARISON: CT neck May 17, 2021 CLINICAL HISTORY: CEREBRAL ANEURYSM. EXAM MEASUREMENTS: RIGHT: Peak Systolic Velocity (PSV) cm/sec ----- Right CCA: 55.7 ----- Right ICA: 103.0 ----- Right ECA: 103.0 ICA/CCA ratio: 1.85 RIGHT: End Diastole cm/sec ----- Right CCA: 15.6 ----- Right ICA: 39.2 ----- Right ECA: 18.3 LEFT: Peak Systolic Velocity (PSV) cm/sec ----- Left CCA: no flow ----- Left ICA: reversed flow at bulb ----- Left ECA: no flow detected ICA/CCA ratio: LEFT: End Diastole cm/sec ----- Left CCA: no flow ----- Left ICA: reversed flow at bulb ----- Left ECA: no flow detected VERTEBRALS (direction of flow): Right Vertebral: Antegrade Left Vertebral: Antegrade Rhythm: Normal Mild to moderate peripheral plaque right carotid bulb. Velocity measurements and ratios remain within normal limits on the right. Redemonstration of complete occlusion of the left common carotid artery shortly after origin. IMPRESSION: Complete occluded left common carotid artery redemonstrated. No hemodynamically signific ant stenosis on the right noted. Criteria for Assigning % of Stenosis / Diameter reduction (Estimation based on the indirect measurements of the internal carotid artery velocities (ICA PSV). 1. Normal (no stenosis)=ICA PSV < 125 cm/s: ratio < 2.0: ICA EDV<40 cm/s. 2. Less than 50% stenosis=ICA PSV < 125 cm/s: ratio < 2.0: ICA EDV<40 cm/s. 3. 50 to 69% stenosis=ICA PSV of 125 to 230 cm/s: ration 2.0 ? 4.0: ICA EDV 40-100 cm/s. 4. Greater than 70% stenosis to near occlusion= ICA PSV > 230 cm/s: ratio > 4.0: ICA EDV > 100 cm/s. 5. Near occlusion= ICA PSV velocities may be low or undetectable: variable ratio and ICA EDV. 6. Total occlusion=unable to detect flow.
== END | disposition home or self-care (01) ==
LOC: RADUSWWP 12:12
PROVIDERS: ATTEND Family Medicine
DX: I65.22 Occlusion and stenosis of left carotid artery (principal)
CPT/HCPCS: 93880

== ENCOUNTER 2021-11-15 14:52 | Emergency (ER) | payer MEDICARE ==
[2021-11-15 15:06] VITALS: TEMP 98.6
[2021-11-15 15:50] LABS: Basophils # (A) 0.1 k/uL (0-0.2); Basophils % (A) 1 %; Eosinophils # (A) 0.3 k/uL (0-0.7); Eosinophils % (A) 3 %; HCT 44.6 % (34.0-46.0); HGB 14.7 gm/dL (11.4-16.0); Lymphocytes # (A) 1.5 k/uL (1.0-4.8); Lymphocytes % (A) 20 %; MCH 31.5 pg (25.0-35.0); MCHC 32.8 g/dL (31.0-37.0); MCV 96.1 fL (80.0-100.0); Mean Platelet Volume 7.9; Monocytes # (A) 0.5 k/uL (0-1.0); Monocytes % (A) 6 %; Neutrophils # (A) 5.3 k/uL (1.3-7.7); Neutrophils % (A) 68 %; Platelet Count 299 k/uL (150-450); RBC 4.65 m/uL (3.80-5.40); RDW 13.2 % (11.5-15.5); WBC 7.8 k/uL (3.8-10.6)
--- NOTE | 2021-11-15 15:50 | XR ---
EXAMINATION TYPE: XR chest 2V DATE OF EXAM: 11/15/2021 COMPARISON: 05/17/2021 TECHNIQUE: PA and lateral views submitted. HISTORY: Difficulty breathing FINDINGS: Chronic rib cage deformity in the left with pleural thickening noted. Heart size normal atherosclerot ic change aorta. There is a chronic appearing severe compression fracture mid thoracic spine. Hyperin flation suggests COPD. Atherosclerotic change aorta. Calcification soft tissue left neck likely relat ed carotid artery. Postsurgical change soft tissue right neck. Question small hiatal hernia. IMPRESSION: 1. COPD.
[2021-11-15 15:57] LABS: INR 0.9 (<1.2); Partial Thromboplastin Time 25.8 sec (22.0-30.0); Prothrombin Time 10.1 sec (9.0-12.0)
[2021-11-15 16:00] LABS: Albumin 4.8 g/dL (3.5-5.0); Calcium 9.2 mg/dL (8.4-10.2); Potassium 4.1 mmol/L (3.5-5.1); Total Bilirubin 0.4 mg/dL (0.2-1.3); Total Protein 7.8 g/dL (6.3-8.2)
--- NOTE | 2021-11-15 16:12 | ED ---
General Adult HPI - General Chief complaint: Shortness of Breath Stated complaint: JACLYN,rib & back pain Time Seen by Provider: 11/15/21 16:12 Source: patient, RN notes reviewed Mode of arrival: ambulatory Limitations: no limitations - History of Present Illness Initial comments: Patient is a 71-year-old female presents to the emergency room with complaints of rib pain bilaterally which radiates around to her back and downwards posteriorly. She reports that the pain began approximately 3 weeks ago. She states that at the time when her pain began she did have a significant cough but denies any cough at this time. She has been taking Flexeril which is prescribed her 10 mg twice a day as needed. She reports that this medication takes the edge off the pain but the pain has been persisting. She denies any worsening of the pain or trauma. She reports multiple right rib fractures in February of last year but denies any issues with healing. She denies any other complaints or concerns at this time including any typical chest pain, shortness of breath, abdominal pain, nausea, vomiting, changes in bowel or bladder, fevers or chills. She has past medical history significant for CAD, [place], anxiety, COPD, hypertension and hyperlipidemia. - Related Data Home Medications Medication Instructions Recorded Confirmed ALPRAZolam [Xanax] 0.5 mg PO TID 05/17/21 05/17/21 Aspirin [[place] Aspirin EC] 81 mg PO HS 05/17/21 05/17/21 Cholecalciferol [Vitamin D3 (125 125 mcg PO DAILY 05/17/21 05/17/21 Mcg = 5000 Iu)] Citalopram Hydrobromide [CeleXA] 40 mg PO HS 05/17/21 05/17/21 Clopidogrel [Plavix] 75 mg PO DAILY 05/17/21 05/17/21 Fluticasone/Vilanterol [Breo 1 puff INHALATION RT-DAILY 05/17/21 05/17/21 Ellipta 200-25 Mcg Inhaler] HYDROcodone/APAP 5-325MG [[place] 1 tab PO Q6HR PRN 05/17/21 05/17/21 5-325] Isosorbide Mononitrate ER [Imdur] 30 mg PO DAILY 05/17/21 05/17/21 Magnesium Oxide [Mag-Ox] 400 mg PO DAILY 05/17/21 05/17/21 Metoprolol Tartrate [Lopressor] 50 mg PO BID 05/17/21 05/17/21 Pravastatin Sodium [Pravachol] 40 mg PO HS 05/17/21 05/17/21 amLODIPine [Norvasc] 2.5 mg PO DAILY 05/17/21 05/17/21 lisinopriL [Zestril] 20 mg PO DAILY 05/17/21 05/17/21 traMADol HCL 100 mg PO Q6H PRN 05/17/21 05/17/21 Previous Rx's Medication Instructions Recorded Cyclobenzaprine [Flexeril] 10 mg PO TID PRN 7 Days #21 tab 11/15/21 methylPREDNISolone Dose Pack 4 mg PO DIRECTED #21 tab 11/15/21 [Medrol Dose Pack] Allergies Allergy/AdvReac Type Severity Reaction Status Date / Time bupropion [From Wellbutrin] Allergy Rash/Hives Verified 11/15/21 15:06 Penicillins Allergy Anaphylaxis Verified 11/15/21 15:06 Review of Systems ROS Statement: Those systems with pertinent positive or pertinent negative responses have been documented in the HPI. ROS Other: All systems not noted in ROS Statement are negative. Past Medical History Past Medical History: COPD, Hypertension, Myocardial Infarction ([place]) Additional Past Medical History / Comment(s): 1 stent placed in 2009, emphysema. History of Any Multi-Drug Resistant Organisms: None Reported Past Surgical History: Heart Catheterization With Stent Past Psychological History: Anxiety Smoking Status: Current every day smoker Past Alcohol Use History: None Reported Past Drug Use History: None Reported General Exam General appearance: alert, in no apparent distress Head exam: Present: atraumatic, normocephalic, normal inspection Eye exam: Present: normal appearance, PERRL, EOMI. Absent: scleral icterus, conjunctival injection, periorbital swelling ENT exam: Present: normal exam, mucous membranes moist Neck exam: Present: normal inspection. Absent: lymphadenopathy Respiratory exam: Present: normal lung sounds bilaterally, chest wall tenderness (Bilateral lower rib cage with radiation posteriorly). Absent: respiratory distress, wheezes, rales, rhonchi, stridor Cardiovascular Exam: Present: regular rate, normal rhythm, normal heart sounds. Absent: systolic murmur, diastolic murmur, rubs, gallop, clicks GI/Abdominal exam: Present: soft, normal bowel sounds. Absent: distended, tenderness, guarding, rebound, rigid Extremities exam: Present: normal inspection, full ROM, normal capillary refill. Absent: pedal edema, joint swelling Back exam: Present: normal inspection Neurological exam: Present: alert, oriented X3, CN II-XII intact Psychiatric exam: Present: normal affect, normal mood Skin exam: Present: warm, dry, intact, normal color. Absent: rash Course Vital Signs 11/15/21 11/15/21 15:03 16:43 Temperature 98.6 F Pulse Rate 70 81 Respiratory 20 20 Rate Blood Pressure 153/94 141/87 O2 Sat by Pulse 96 94 L Oximetry Medical Decision Making - Medical Decision Making 71-year-old female presenting to the emergency room with complaints of bilateral rib pain ongoing for 3 weeks without improvement. No trauma. Some response to Flexeril at home. Laboratory studies including CBC, CMP, PT/INR and lactic acid along with chest x-ray and EKG ordered while patient was in waiting room. EKG shows sinus rhythm with first-degree AV block, chest x-ray shows chronic thoracic spine fractures and chronic rib cage deformity with COPD. No acute fractures. CBC and PT/INR normal. CMP without significant anomalies. No indication for further testing at this time. Will give Toradol IM and dose of cyclobenzaprine and monitor response. Some pain improvement with Toradol and cyclobenzaprine. Discussed symptoms. Will discharge home on Medrol Dosepak rather than NSAID along with cyclobenzaprine to reduce inflammation and pain. Advised to brace for coughing and continue Brio inhaler to treat COPD. Discussed follow-up with primary care provider and return parameters to the emergency room. Case discussed with Dr. Sandoval - Lab Data Result diagrams: 11/15/21 15:26 11/15/21 15:26 Lab Results 11/15/21 11/15/21 11/15/21 Range/Units 15:26 15:26 15:26 WBC 7.8 (3.8-10.6) k/uL RBC 4.65 (3.80-5.40) m/uL Hgb 14.7 (11.4-16.0) gm/dL Hct 44.6 (34.0-46.0) % MCV 96.1 (80.0-100.0) fL MCH 31.5 (25.0-35.0) pg MCHC 32.8 (31.0-37.0) g/dL RDW 13.2 (11.5-15.5) % Plt Count 299 (150-450) k/uL MPV 7.9 Neutrophils % 68 % Lymphocytes % 20 % Monocytes % 6 % Eosinophils % 3 % Basophils % 1 % Neutrophils # 5.3 (1.3-7.7) k/uL Lymphocytes # 1.5 (1.0-4.8) k/uL Monocytes # 0.5 (0-1.0) k/uL Eosinophils # 0.3 (0-0.7) k/uL Basophils # 0.1 (0-0.2) k/uL PT 10.1 (9.0-12.0) sec INR 0.9 (<1.2) APTT 25.8 (22.0-30.0) sec Sodium 133 L (137-145) mmol/L Potassium 4.1 (3.5-5.1) mmol/L Chloride 96 L (98-107) mmol/L Carbon Dioxide 24 (22-30) mmol/L Anion Gap 13 mmol/L BUN 10 (7-17) mg/dL Creatinine 0.85 (0.52-1.04) mg/dL Est GFR (CKD-EPI)AfAm 81 (>60 ml/min/1.73 sqM) Est GFR (CKD-EPI)NonAf 70 (>60 ml/min/1.73 sqM) Glucose 95 (74-99) mg/dL Calcium 9.2 (8.4-10.2) mg/dL Total Bilirubin 0.4 (0.2-1.3) mg/dL AST 39 H (14-36) U/L ALT 22 (4-34) U/L Alkaline Phosphatase 132 H (38-126) U/L Troponin I (0.000-0.034) ng/mL Total Protein 7.8 (6.3-8.2) g/dL Albumin 4.8 (3.5-5.0) g/dL 11/15/21 Range/Units 15:26 WBC (3.8-10.6) k/uL RBC (3.80-5.40) m/uL Hgb (11.4-16.0) gm/dL Hct (34.0-46.0) % MCV (80.0-100.0) fL MCH (25.0-35.0) pg MCHC (31.0-37.0) g/dL RDW (11.5-15.5) % Plt Count (150-450) k/uL MPV Neutrophils % % Lymphocytes % % Monocytes % % Eosinophils % % Basophils % % Neutrophils # (1.3-7.7) k/uL Lymphocytes # (1.0-4.8) k/uL Monocytes # (0-1.0) k/uL Eosinophils # (0-0.7) k/uL Basophils # (0-0.2) k/uL PT (9.0-12.0) sec INR (<1.2) APTT (22.0-30.0) sec Sodium (137-145) mmol/L Potassium (3.5-5.1) mmol/L Chloride (98-107) mmol/L Carbon Dioxide (22-30) mmol/L Anion Gap mmol/L BUN (7-17) mg/dL Creatinine (0.52-1.04) mg/dL Est GFR (CKD-EPI)AfAm (>60 ml/min/1.73 sqM) Est GFR (CKD-EPI)NonAf (>60 ml/min/1.73 sqM) Glucose (74-99) mg/dL Calcium (8.4-10.2) mg/dL Total Bilirubin (0.2-1.3) mg/dL AST (14-36) U/L ALT (4-34) U/L Alkaline Phosphatase (38-126) U/L Troponin I <0.012 (0.000-0.034) ng/mL Total Protein (6.3-8.2) g/dL Albumin (3.5-5.0) g/dL - EKG Data EKG Comments: Sinus rhythm with first-degree AV block, ventricular rate 73 bpm, OR interval 122 ms, QRS duration 81 ms, QT/QTC 380/407 ms, PRT axes 49, 36, 40 - Radiology Data Radiology results: report reviewed, image reviewed Chronic rib cage deformity left with pleural thickening. Chronic appearing severe compression fracture mid thoracic spine. Hyperinflation suggesting COPD. Disposition Clinical Impression: Costochondritis Disposition: HOME SELF-CARE Condition: Stable Instructions (If sedation given, give patient instructions): Costochondritis (DC) Additional Instructions: Please take nitro dose pack as prescribed. To take any other anti-inflammatories while taking steroids including ibuprofen or additional aspirin. Please utilize cyclobenzaprine as needed for muscle spasms. Brace your rib cage for coughs. Please follow-up with your primary care provider. Please continue to utilize her by mouth inhaler for your COPD. Please return to the Emergency Department if symptoms worsen or any other concerns. Prescriptions: Cyclobenzaprine [Flexeril] 10 mg PO TID PRN 7 Days #21 tab PRN Reason: Muscle Spasm methylPREDNISolone Dose Pack [Medrol Dose Pack] 4 mg PO DIRECTED #21 tab Is patient prescribed a controlled substance at d/c from ED?: No Referrals: Christopher Pleitez MD [Primary Care Provider] - 1-2 days Time of Disposition: 17:24
[2021-11-15] MEDS ORDERED: CYCLOBENZAPRINE 10 MG TAB PO STA (16:19)
[2021-11-15] MEDS ORDERED: KETOROLAC 15 MG/ML 1 ML VIAL IM STA (16:19)
[2021-11-15 18:10] VITALS: BP 133/92; PULSE 69; RESP 18
== END 2021-11-15 18:10 | disposition home or self-care (01) ==
LOC: EC 14:52
DX: M94.0 Chondrocostal junction syndrome [Tietze] (principal); J44.9 Chronic obstructive pulmonary disease, unspecified; I10 Essential (primary) hypertension; F17.200 Nicotine dependence, unspecified, uncomplicated; Z82.49 Family history of ischemic heart disease and other diseases of the circulatory system; Z88.0 Allergy status to penicillin; Z88.6 Allergy status to analgesic agent
CPT/HCPCS: 36415; 93005; 80053; 84484; 85025; 85610; 85730; 71046; 99285; 96372; J1885

== ENCOUNTER → 2022-07-17 | Outpatient (CLI) | payer MEDICARE ==
--- NOTE | 2022-07-17 18:28 | MR ---
EXAMINATION TYPE: MR brain/orbits wo/w con DATE OF EXAM: 07/17/2022 COMPARISON: MR brain 05/18/2021, MRA HEAD 05/18/2021, CTA head 05/17/2021, CT brain 05/17/2021 HISTORY: Worsening fabby vision, halos around lights, hx of aneurysm repair TECHNIQUE: Multiplanar, multisequence images of the brain and brainstem is performed without and with IV contras t, utilizing 9 mL intravenous Gadavist . FINDINGS: Diffusion weighted images demonstrate no evidence of a recent infarct or other diffusion ab normality. There is no extra-axial fluid collection or significant white matter signal abnormality. The ventricular system and cisternal spaces are normal in size and appearance. The brain volume is age appropriate. Midline structures demonstrate normal morphology. The craniocervical junction appears within normal limits. 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 Susceptibility artifact noted a nd consistent with aneurysm repair. This measures 2.5 x 2.4 cm with peripheral enhancement. There is internal arterial enhancement consistent with continued flow within the aneurysm measuring up to 1.5 cm. This there is some mass effect upon the optic chiasm. The visualized portion of the left internal carotid arteries again occluded. Diminutive but patent appearance of the right vertebral artery. Child Psychiatrist ss-filling is again demonstrated in the anterior cerebral artery and middle cerebral artery on the le ft. The dural venous sinuses appear patent. The visualized sinuses are clear and the globes are intact. B ilateral aphakia. IMPRESSION: 1. 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 This measures up to 2.5 cm, previously measured up to 1.7 cm. There is continue d flow within the aneurysm with mass effect upon the optic chiasm. Vascular consult is recommended. 2. 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
== END | disposition home or self-care (01) ==
LOC: RADMRIMAIN 13:38
PROVIDERS: ATTEND Family Medicine
DX: I65.23 Occlusion and stenosis of bilateral carotid arteries (principal); H53.15 Visual distortions of shape and size
CPT/HCPCS: 70543; 70553; A9585

== ENCOUNTER 2022-10-12 12:49 | Emergency (ER) | payer MEDICARE ==
[2022-10-12] MEDS ORDERED: SODIUM CHLORIDE 0.9% 500 ML 500 ML IV ONE ×2 (13:55→15:21)
--- NOTE | 2022-10-12 13:55 | ED ---
Fall HPI - General Chief Complaint: Fall Stated Complaint: Fall,Blood Thinners Time Seen by Provider: 10/12/22 13:05 Source: patient, EMS Mode of arrival: EMS - History of Present Illness Initial Comments: 72-year-old female with past history of COPD, hypertension, myocardial infarct on Plavix who presents to the emergency department after she had several falls at home. She reports her first fall was on Sunday. She tripped over an ottoman and fell to the ground hitting her face. Her neighbor came over the night and noticed it. She was going to have her evaluated by her primary care physician this morning. She began calling her around 9 AM. When she did not hear from the patient by 11 AM she called police to do a well check. They entered the house and found that the patient had fallen in the bathtub around 12:30 AM and could not get back out. The patient did hit her face again. Denies losing consciousness. Does admit to neck pain and therefore is placed in a c-collar upon arrival. She has visible bruising to her left shoulder, left wrist. Denies any pain in these joints. Does admit to some bilateral hip pain. Neighbor at bedside does not feel like the patient is anymore confused than her normal. Does have concerns about the patient living at home with her general forgetfulness which has been accelerating since she had surgery last year. Patient does have a known carotid aneurysm which was coiled by Dr. Murray last year. She denies having any available family to help take care of her. No other alleviating, precipitating or modifying factors - Related Data Home Medications Medication Instructions Recorded Confirmed Aspirin [[place] Aspirin EC] 81 mg PO DAILY 05/17/21 10/12/22 Citalopram Hydrobromide [CeleXA] 40 mg PO HS 05/17/21 10/12/22 Clopidogrel [Plavix] 75 mg PO DAILY 05/17/21 10/12/22 Fluticasone/Vilanterol [Breo 1 puff INHALATION RT-DAILY 05/17/21 10/12/22 Ellipta 200-25 Mcg Inhaler] Isosorbide Mononitrate ER [Imdur] 30 mg PO DAILY 05/17/21 10/12/22 Metoprolol Tartrate [Lopressor] 50 mg PO BID-W/MEALS 05/17/21 10/12/22 Pravastatin Sodium [Pravachol] 40 mg PO DAILY 05/17/21 10/12/22 amLODIPine [Norvasc] 2.5 mg PO DAILY 05/17/21 10/12/22 lisinopriL [Zestril] 20 mg PO DAILY 05/17/21 10/12/22 Cholecalciferol [Vitamin D3 (25 50 mcg PO DAILY 10/12/22 10/12/22 Mcg = 1000 Iu)] Triple Magnesium Complex 1 cap PO DAILY 10/12/22 10/12/22 Umeclidinium Cross Anchor [Incruse 1 puff INHALATION RT-DAILY 10/12/22 10/12/22 Ellipta] Allergies Allergy/AdvReac Type Severity Reaction Status Date / Time bacitracin Allergy Rash/Hives Verified 10/12/22 14:32 [From Neosporin ([id number])] bupropion [From Wellbutrin] Allergy Rash/Hives Verified 10/12/22 14:32 neomycin Allergy Rash/Hives Verified 10/12/22 14:32 [From Neosporin ([id number])] Penicillins Allergy Itching Verified 10/12/22 14:32 polymyxin B Allergy Rash/Hives Verified 10/12/22 14:32 [From Neosporin ([id number])] Review of Systems ROS Statement: Those systems with pertinent positive or pertinent negative responses have been documented in the HPI. ROS Other: All systems not noted in ROS Statement are negative. Past Medical History Past Medical History: COPD, Hypertension, Myocardial Infarction ([place]) Additional Past Medical History / Comment(s): 1 stent placed in 2009, emphysema. History of Any Multi-Drug Resistant Organisms: None Reported Past Surgical History: Heart Catheterization With Stent Past Psychological History: Anxiety Smoking Status: Current every day smoker Past Alcohol Use History: None Reported Past Drug Use History: None Reported General Exam Limitations: no limitations General appearance: alert, in no apparent distress Head exam: Present: other (Significant ecchymosis to the bilateral periorbital regions. Hematoma left forehead. Bruising extends down the patient's left neck) Eye exam: Present: normal appearance, PERRL, EOMI, other (No signs of entrapment). Absent: scleral icterus, conjunctival injection, periorbital swelling ENT exam: Present: normal exam, mucous membranes moist Neck exam: Present: tenderness (Midline) Respiratory exam: Present: normal lung sounds bilaterally. Absent: respiratory distress, wheezes, rales, rhonchi, stridor Cardiovascular Exam: Present: regular rate, normal rhythm, normal heart sounds. Absent: systolic murmur, diastolic murmur, rubs, gallop, clicks GI/Abdominal exam: Present: soft, normal bowel sounds. Absent: distended, tenderness, guarding, rebound, rigid Extremities exam: Present: other (Ecchymosis over left wrist and left shoulder. Continues to have full normal range of motion) Neurological exam: Present: alert, oriented X3, CN II-XII intact Psychiatric exam: Present: normal affect, normal mood Skin exam: Present: warm, dry Course Vital Signs 10/12/22 10/12/22 10/12/22 13:02 14:45 16:05 Temperature 99.5 F Pulse Rate 80 80 76 Respiratory 18 17 17 Rate Blood Pressure 111/62 136/74 135/87 O2 Sat by Pulse 92 L 95 93 L Oximetry 10/12/22 17:26 Temperature 98.7 F Pulse Rate 82 Respiratory 18 Rate Blood Pressure 138/91 O2 Sat by Pulse 95 Oximetry Medical Decision Making - Medical Decision Making Was pt. sent in by a medical professional or institution (, PA, [employer], urgent care, hospital, or half-way...) When possible be specific @ -No Did you speak to anyone other than the patient for history (EMS, parent, family, police, friend...)? What history was obtained from this source @ -I spoke with EMS and the patient's neighbor for history Did you review nursing and triage notes (agree or disagree)? Why? @ -I reviewed and agree with nursing and triage notes Were old charts reviewed (outside hosp., previous admission, EMS record, old EKG, old radiological studies, urgent care reports/EKG's, half-way records)? Report findings @ -No old charts were reviewed Differential Diagnosis (chest pain, altered mental status, abdominal pain women, abdominal pain men, vaginal bleeding, weakness, fever, dyspnea, syncope, headache, dizziness, GI bleed, back pain, seizure, CVA, palpatations, mental health, musculoskeletal)? @ -Subarachnoid hemorrhage, subdural hemorrhage, cervical fracture, scaphoid fracture EKG interpreted by me (3pts min.). @ -Yes and demonstrates sinus rhythm with a rate of 80. WI interval 202. QRS 97. QTC 448. No acute ST segment elevations or depressions X-rays interpreted by me (1pt min.). @ -Yes and demonstrate no acute fractures CT interpreted by me (1pt min.). @ -Yes and demonstrate that the patient has an enlarging carotid anerysym measuring 3 cm which has been previously coiled U/S interpreted by me (1pt. min.). @ -None done What testing was considered but not performed or refused? (CT, X-rays, U/S, labs)? Why? @ -None What meds were considered but not given or refused? Why? @ -None Did you discuss the management of the patient with other professionals (professionals i.e. , PA, [employer], lab, RT, psych nurse, high school social studies tutor, nurse practical, teacher, correction officer head, pillowcase sewer)? Give summary @ -I spoke with Dr. Reed at [facility] Was smoking cessation discussed for >3mins.? @ -No Was critical care preformed (if so, how long)? @ -No Were there social determinants of health that impacted care today? How? (Homelessness, low income, unemployed, alcoholism, drug addiction, transportation, low edu. Level, literacy, decrease access to med. care, [place] [facility], rehab)? @ -No Was there de-escalation of care discussed even if they declined (Discuss DNR or withdrawal of care, Hospice)? DNR status @ -No What co-morbidities impacted this encounter? (DM, HTN, Smoking, COPD, CAD, Cancer, CVA, ARF, Chemo, Hep., AIDS, mental health diagnosis, sleep apnea, morbid obesity)? @ -Carotid aneurysm Was patient admitted / discharged? Hospital course, mention meds given and route, prescriptions, significant lab abnormalities, going to OR and other pertinent info. @ -Upon arrival patient was placed into room 28. Thorough history and physical exam was performed. Patient is complaining neck pain and therefore she is placed in a c-collar. She does have significant bruising to her face. Is known to be on Plavix. She is sent for CT imaging of her head and cervical spine. He does demonstrate the patient's known carotid aneurysm however it is enlarging in size. X-rays are performed the patient's chest, pelvis, left wrist and left shoulder which do not demonstrate any acute traumatic injuries. Laboratory studies were conducted which demonstrated a hyponatremia of 122. CK is mildly elevated at 1000. These results are discussed with the patient. Do feel that the patient needs to be admitted overnight for observation for her hyponatremia however we do not have neuro interventionalists available for consultation in regards to the patient's enlarging carotid aneurysm. Did recommend transfer to [facility] where the patient had her procedure performed. Called and spoke with Dr. Reed who was agreeable to accept transfer of the patient. [employer] forms are signed. Patient is transferred in stable condition. C-collar remains in place as the patient continues to have persistent pain even though CT is negative Undiagnosed new problem with uncertain prognosis? @ -Yes Drug Therapy requiring intensive monitoring for toxicity (Heparin, Nitro, Insulin, Cardizem)? @ -No Were any procedures done? @ -No Diagnosis/symptom? @ -Acute fall, facial ecchymosis, blunt head trauma, left shoulder and left wrist ecchymosis, elevated CK, acute hyponatremia, right carotid aneurysm Acute, or Chronic, or Acute on Chronic? @ -Acute Uncomplicated (without systemic symptoms) or Complicated (systemic symptoms)? @ -Complicated Side effects of treatment? @ -No Exacerbation, Progression, or Severe Exacerbation? @ -No Poses a threat to life or bodily function? How? (Chest pain, [place], [place], pneumonia, PE, COPD, DKA, ARF, appy, cholecystitis, CVA, Diverticulitis, Homicidal, Suicidal, threat to staff... and all critical care pts) @ -Yes patient has large saccular aneurysm measuring 3 cm which is enlarging in size - Lab Data Result diagrams: 10/12/22 13:58 10/12/22 13:58 Lab Results 10/12/22 10/12/22 10/12/22 Range/Units 13:58 13:58 13:58 WBC 14.7 H (3.8-10.6) k/uL RBC 4.16 (3.80-5.40) m/uL Hgb 13.5 (11.4-16.0) gm/dL Hct 38.9 (34.0-46.0) % MCV 93.5 (80.0-100.0) fL MCH 32.5 (25.0-35.0) pg MCHC 34.8 (31.0-37.0) g/dL RDW 13.5 (11.5-15.5) % Plt Count 209 (150-450) k/uL MPV 8.3 Neutrophils % 85 % Lymphocytes % 8 % Monocytes % 6 % Eosinophils % 0 % Basophils % 0 % Neutrophils # 12.5 H (1.3-7.7) k/uL Lymphocytes # 1.1 (1.0-4.8) k/uL Monocytes # 0.9 (0-1.0) k/uL Eosinophils # 0.0 (0-0.7) k/uL Basophils # 0.0 (0-0.2) k/uL PT 10.5 (9.0-12.0) sec INR 1.0 (<1.2) APTT 22.9 (22.0-30.0) sec Sodium 122 L (137-145) mmol/L Potassium 3.3 L (3.5-5.1) mmol/L Chloride 89 L (98-107) mmol/L Carbon Dioxide 24 (22-30) mmol/L Anion Gap 9 mmol/L BUN 16 (7-17) mg/dL Creatinine 0.83 (0.52-1.04) mg/dL Est GFR (CKD-EPI)AfAm 83 (>60 ml/min/1.73 sqM) Est GFR (CKD-EPI)NonAf 72 (>60 ml/min/1.73 sqM) Glucose 129 H (74-99) mg/dL Plasma Lactic Acid Brian (0.7-2.0) mmol/L Calcium 8.9 (8.4-10.2) mg/dL Total Bilirubin 1.2 (0.2-1.3) mg/dL AST 40 H (14-36) U/L ALT 24 (4-34) U/L Alkaline Phosphatase 79 (38-126) U/L Creatine Kinase 1054 H* (30-135) U/L Total Protein 6.8 (6.3-8.2) g/dL Albumin 4.0 (3.5-5.0) g/dL Serum Alcohol <10 mg/dL 10/12/22 Range/Units 13:58 WBC (3.8-10.6) k/uL RBC (3.80-5.40) m/uL Hgb (11.4-16.0) gm/dL Hct (34.0-46.0) % MCV (80.0-100.0) fL MCH (25.0-35.0) pg MCHC (31.0-37.0) g/dL RDW (11.5-15.5) % Plt Count (150-450) k/uL MPV Neutrophils % % Lymphocytes % % Monocytes % % Eosinophils % % Basophils % % Neutrophils # (1.3-7.7) k/uL Lymphocytes # (1.0-4.8) k/uL Monocytes # (0-1.0) k/uL Eosinophils # (0-0.7) k/uL Basophils # (0-0.2) k/uL PT (9.0-12.0) sec INR (<1.2) APTT (22.0-30.0) sec Sodium (137-145) mmol/L Potassium (3.5-5.1) mmol/L Chloride (98-107) mmol/L Carbon Dioxide (22-30) mmol/L Anion Gap mmol/L BUN (7-17) mg/dL Creatinine (0.52-1.04) mg/dL Est GFR (CKD-EPI)AfAm (>60 ml/min/1.73 sqM) Est GFR (CKD-EPI)NonAf (>60 ml/min/1.73 sqM) Glucose (74-99) mg/dL Plasma Lactic Acid Brian 1.4 (0.7-2.0) mmol/L Calcium (8.4-10.2) mg/dL Total Bilirubin (0.2-1.3) mg/dL AST (14-36) U/L ALT (4-34) U/L Alkaline Phosphatase (38-126) U/L Creatine Kinase (30-135) U/L Total Protein (6.3-8.2) g/dL Albumin (3.5-5.0) g/dL Serum Alcohol mg/dL Disposition Clinical Impression: Fall, Blunt head trauma, Carotid aneurysm, right, Hyponatremia, Neck pain Disposition: OTHER INSTITUTION NOT DEFINED Condition: Serious Is patient prescribed a controlled substance at d/c from ED?: No Referrals: Christopher Pleitez MD [Primary Care Provider] - 1-2 days Time of Disposition: 17:57 - Out of Hospital Transfer - Req. Specs Out of Hospital Transfer - Requested Specifics: Other Emergency Center ([facility])
[2022-10-12 14:30] LABS: Partial Thromboplastin Time 22.9 sec (22.0-30.0); Prothrombin Time 10.5 sec (9.0-12.0)
[2022-10-12 14:38] LABS: ALT 24 U/L (4-34); AST 40 U/L (14-36); African American GFR (CKD) 83 (>60 ml/min/1.73 sqM); Alcohol <10 mg/dL; Alkaline Phosphatase 79 U/L (38-126); Anion Gap 9 mmol/L; Blood Urea Nitrogen 16 mg/dL (7-17); Calcium 8.9 mg/dL (8.4-10.2); Carbon Dioxide 24 mmol/L (22-30); Chloride 89 mmol/L (98-107); Glucose 129 mg/dL (74-99); Non-African American GFR(CKD) 72 (>60 ml/min/1.73 sqM); Potassium 3.3 mmol/L (3.5-5.1); Sodium 122 mmol/L (137-145); Total Bilirubin 1.2 mg/dL (0.2-1.3); Total Protein 6.8 g/dL (6.3-8.2)
[2022-10-12 14:50] LABS: Creatine Kinase 1054 U/L (30-135)
[2022-10-12 15:07] LABS: Basophils % (A) 0 %; Eosinophils % (A) 0 %; HCT 38.9 % (34.0-46.0); HGB 13.5 gm/dL (11.4-16.0); Lymphocytes # (A) 1.1 k/uL (1.0-4.8); Lymphocytes % (A) 8 %; MCH 32.5 pg (25.0-35.0); MCHC 34.8 g/dL (31.0-37.0); MCV 93.5 fL (80.0-100.0); Mean Platelet Volume 8.3; Monocytes # (A) 0.9 k/uL (0-1.0); Monocytes % (A) 6 %; Neutrophils # (A) 12.5 k/uL (1.3-7.7); Neutrophils % (A) 85 %; Platelet Count 209 k/uL (150-450); RBC 4.16 m/uL (3.80-5.40); RDW 13.5 % (11.5-15.5); WBC 14.7 k/uL (3.8-10.6)
--- NOTE | 2022-10-12 15:15 | CT ---
EXAMINATION TYPE: CT brain davey crews DATE OF EXAM: 10/12/2022 COMPARISON: 05/17/2021 brain HISTORY: 72-year-old female with pain after Fall CT DLP: 1226.2 mGycm Automated exposure control for dose reduction was used. Technique: Examination of the head was done in axial plane without intravenous contrast. Coronal and sagittal reconstructions performed. CT of the cervical spine was obtained in axial plane without intravenous injection of contrast mater ial. Coronal and sagittal reformatted images were obtained from the axial views for evaluation of f ractures, spinal alignment and canal. FINDINGS: Head: There is extensive streak and beam hardening artifact related to a large coil mass which fills the sandy wellington's previous large saccular aneurysm of the right carotid terminus. However, there appears to be new density along the superior margin of the coil mass. The total size of the aneurysm (including the coil mass) is now 2.9 x 2.6 cm on sagittal series versus 2.0 x 1.4 cm on 05/17/2021. An additional M1 segment right MCA stent is noted. This has mass effect on the anterior aspect of the third ventricle. Allowing for the extensive metal artifacts, no convincing evidence for acute intracranial hemorrhage, acute ischemic change, midline shift, or extra-axial fluid collection. No hydrocephalus. No effaceme nt of cerebral sulci or basal subarachnoid cisterns. Elam-white matter differentiation is maintained. Focal left supraorbital and anterior frontal scalp hematoma measuring 3.6 cm wide. No underlying calv arial fracture. Mastoid air cells well pneumatized. Cervical spine: No craniocervical junction abnormality, predental space widening, or prevertebral soft tissue swellin g. There is mild multilevel degenerative change particularly facet arthropathy and secondary trace grade 1 anterolisthesis C5-C6. No evident canal compromise by CT though assessment of the spinal canal fro m C5 and below is limited due to artifact from the patient's shoulders. No acute fracture seen of the cervical spine. Severe atherosclerotic calcifications at the left carotid bifurcation. Variable mild bilateral neuroforaminal narrowing. Sagittal and coronal reformatted images confirm above findings. COMBINED IMPRESSION: Brain: 1. 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 This causes prominent metal artifacts. However, the overall size of the aneurysm (i ncluding the coil mass) now measures 2.9 x 2.6 cm versus 2.0 x 1.4 cm on 05/17/2021. Suspect progressiv e filling of the aneurysm and progressive enlargement now to nearly 3 cm. Neurosurgery evaluation adv ised. The very large size places the patient at high risk for aneurysm rupture. 2. Focal anterior left frontal scalp hematoma measuring 3.6 cm. No underlying calvarial fracture or a cute intracranial abnormality seen. Cervical spine: 3. Mild spondylotic changes particularly at C5-C6 levels. There is grade 1 anterolisthesis here. No a cute fracture seen of the cervical spine. Facial bones: 4. Reported separately.
[2022-10-12] MEDS ORDERED: POTASSIUM CHLORIDE ER 20 MEQ TAB.ER PO STA (15:21)
--- NOTE | 2022-10-12 15:23 | CT ---
EXAMINATION TYPE: CT facial bones wo con DATE OF EXAM: 10/12/2022 COMPARISON: None HISTORY: 72-year-old female with pain after Fall TECHNIQUE: CT of the facial bones without contrast. Coronal and sagittal reconstructions performed. CT DLP: 1226.2 mGycm Automated exposure control for dose reduction was used. FINDINGS: There is a focal 3.5 cm left supraorbital and anterior left frontal scalp hematoma versus mass. The mandible, TMJ's, pterygoid plates, zygomatic arches, nasal bone, facial bones, and orbits and bridgette bes appear intact. Paranasal sinuses are well pneumatized. Patient is edentulous. IMPRESSION: 1. FOCAL 3.5 CM LEFT SUPRAORBITAL AND ANTERIOR LEFT FRONTAL SCALP HEMATOMA VERSUS MASS. CLINICALLY CO RRELATE. 2. NO UNDERLYING ACUTE FACIAL BONE FRACTURE SEEN. 3. BRAIN AND C-SPINE REPORTED SEPARATELY.
--- NOTE | 2022-10-12 16:12 | XR ---
EXAMINATION TYPE: XR chest 2V, XR wrist complete 4 views LT, XR pelvis AP view, XR shoulder complete 3 views LT DATE OF EXAM: 10/12/2022 COMPARISON: Chest 11/15/2021 HISTORY: 72-year-old female pain after all, trauma FINDINGS: Chest: Vertebral compression collapse and anterior wedging of a mid thoracic vertebral body remains unchange d from 11/15/2021. This is compatible with chronic injury. Redemonstrated chronic displaced fracture deformities of lateral left-sided ribs and focal peripheral left basilar opacity, probably pleural parenchymal scarring. Heart mildly enlarged. Tortuous/ectatic thoracic aorta. No new consolidation or pleural effusion seen . Left shoulder: Inferior spurring from the distal acromion may be an indirect sign of underlying rotator cuff tear. M oderate degenerative joint space narrowing at the AC joint. No acute fracture, subluxation, or disloc ation. Left wrist: Slight negative ulnar variance. Otherwise, the radiocarpal and distal radial ulnar joint as well as t he midcarpal compartment appear intact. Mild soft tissue swelling is suggested. No acute fracture, cabrera bluxation, dislocation seen. Pelvis: Mild axial joint space narrowing at the right hip with degenerative spurring. SI joints appear symmet bette and intact as does the pubic symphysis. There is osteopenia. No acute fracture, subluxation, or d islocation. IMPRESSION: 1. Chest: Chronic anterior wedge deformity of a mid thoracic vertebral bodies. Chronic displaced frac ture deformities of lateral left-sided ribs. Chronic opacity at the left base, likely pleural parench ymal scarring. Mild cardiomegaly. No definite acute cardiopulmonary process. 2. Left shoulder: Inferior spurring from the distal acromion may be an indirect sign of underlying ro tator cuff tear. Moderate degenerative joint space narrowing AC joint. No acute osseous abnormality s een. 3. Left wrist: Mild soft tissue swelling. No acute osseous abnormality seen. 4. Pelvis: Mild right hip OA. No acute osseous abnormality seen.
[2022-10-12 17:25] VITALS: BP 138/91; PULSE 82; RESP 18; TEMP 98.7
== END 2022-10-12 18:09 | disposition other institution (70) ==
LOC: EC 12:49
DX: S00.83XA Contusion of other part of head, initial encounter (principal); S40.012A Contusion of left shoulder, initial encounter; S60.212A Contusion of left wrist, initial encounter; S10.93XA Contusion of unspecified part of neck, initial encounter; I72.0 Aneurysm of carotid artery; E87.1 Hypo-osmolality and hyponatremia; R74.8 Abnormal levels of other serum enzymes; I10 Essential (primary) hypertension; J43.9 Emphysema, unspecified; I25.2 Old myocardial infarction; F17.200 Nicotine dependence, unspecified, uncomplicated; F41.9 Anxiety disorder, unspecified; Z79.02 Long term (current) use of antithrombotics/antiplatelets; Z79.82 Long term (current) use of aspirin; Z79.51 Long term (current) use of inhaled steroids; Z79.899 Other long term (current) drug therapy; Z88.0 Allergy status to penicillin; Z88.1 Allergy status to other antibiotic agents; Z88.8 Allergy status to other drugs, medicaments and biological substances; W01.0XXA Fall on same level from slipping, tripping and stumbling without subsequent striking against object, initial encounter
CPT/HCPCS: 36415; 80053; 82550; 83605; 85025; 85610; 85730; 72170; 73030; 73110; 71046; 72125; 70486; 70450; 99285; G0480; 80320; 93005